=== PATIENT | female | born 1980 | race Hispanic/Latino ===

== ENCOUNTER 2021-04-23 07:53 | Emergency (ER) | payer OTHER ==
[2021-04-23] MEDS ORDERED: Acetaminophen 500 MG TAB ONE (11:31)
[2021-04-23] MEDS ORDERED: Ketorolac Tromethamine 30 MG/ML VIAL ONE (11:31)
== END 2021-04-23 12:04 | disposition home or self-care (01) ==
LOC: ERS 07:53
DX: R52 Pain, unspecified (principal); Z71.1 Person with feared health complaint in whom no diagnosis is made; Z79.899 Other long term (current) drug therapy; E11.9 Type 2 diabetes mellitus without complications; J45.909 Unspecified asthma, uncomplicated
CPT/HCPCS: 96372; 99283; J1885

== ENCOUNTER 2021-05-01 15:00 | Outpatient (CLI) | payer OTHER | END 2021-05-01 15:01 | disposition home or self-care (01) | LOC: BICRAD 15:00 | PROVIDERS: ATTEND Family Medicine | DX: M54.5 Low back pain (principal); M25.552 Pain in left hip; M54.2 Cervicalgia; M16.12 Unilateral primary osteoarthritis, left hip; M47.812 Spondylosis without myelopathy or radiculopathy, cervical region; M47.816 Spondylosis without myelopathy or radiculopathy, lumbar region | CPT/HCPCS: 72040; 72100 ==

== ENCOUNTER 2021-06-15 15:33 | Outpatient (CLI) | payer OTHER | END 2021-06-15 15:34 | disposition home or self-care (01) | LOC: BICULT 15:33 | PROVIDERS: ATTEND Family Medicine | DX: R10.2 Pelvic and perineal pain (principal); N83.202 Unspecified ovarian cyst, left side | CPT/HCPCS: 76856; 93976 ==

== ENCOUNTER 2021-06-25 07:03 | Outpatient (CLI) | payer OTHER | END 2021-06-25 07:04 | disposition home or self-care (01) | LOC: BICULT 07:03 | PROVIDERS: ATTEND Physician Assistant Medical | DX: R10.13 Epigastric pain (principal) | CPT/HCPCS: 76705 ==